=== PATIENT | female | born 1980 | race Caucasian/White ===

== ENCOUNTER 2021-11-10 21:46 | Inpatient (IN) ==
[2021-11-10 22:50] LABS: ABS Eosinophils 0.2 10^3/ul (0-0.6); ABS Monocytes 0.7 10^3/ul (0-0.8); ABS Neutrophils 3.6 10^3/ul (1.5-7.7); Eosinophil % 2.6 %; Hematocrit 43 % (35-47); Hemoglobin 14.3 g/dL (12.0-16.0); Lymphocyte % 39.9 %; Mean Corpuscular HGB Conc 33 g/dL (31-36); Mean Corpuscular Hemoglobin 29 pg (27-31); Mean Corpuscular Volume 88 fL (80-97); Mean Platelet Volume 9.9 fL (7.4-10.4); Nucleated Red Blood Cells % 0.1; Platelet Count 181 10^3/uL (150-450); Red Blood Count 4.89 10^6 /uL (3.70-4.87); Red Cell Distribution Width 13 % (10-15); White Blood Count 7.6 10^3/uL (3.5-10.8)
[2021-11-10 22:53] LABS: Urine Benzodiazepine Screen None Detected (None Detect); Urine Cannabinoids Screen None Detected (None Detect); Urine Opiates Screen None Detected (None Detect)
[2021-11-10 23:07] LABS: Urine Appearance Cloudy; Urine Bilirubin Negative (Negative); Urine Blood Negative (Negative); Urine Color Yellow; Urine Glucose Negative (Negative); Urine Ketones Trace (Negative); Urine Nitrite Negative (Negative); Urine Protein Negative (Negative); Urine Specific Gravity 1.025 (1.002-1.030); Urine Urobilinogen Negative (Negative)
[2021-11-10 23:14] LABS: ALT 18 U/L (7-52); AST 18 U/L (13-39); Acetaminophen < 15 mcg/mL; Albumin/Globulin Ratio 1.7 (1-3); Alcohol, S 108 mg/dL (<13); Alkaline Phosphatase 67 U/L (35-149); Anion Gap 9 mmol/L (2-11); Blood Urea Nitrogen 10 mg/dL (6-24); CO2 Carbon Dioxide 28 mmol/L (22-32); Calcium 9.2 mg/dL (8.6-10.3); Chloride 103 mmol/L (101-111); Globulin 2.3 g/dL (2-4); Glucose 110 mg/dL (70-100); Salicylate < 2.50 mg/dL (<30); Sodium 140 mmol/L (135-145); Total Protein 6.3 g/dL (6.4-8.9); eGFR CKD-EPI 111.4 (>60)
[2021-11-10 23:17] LABS: Urine Bacteria Absent (Absent); Urine Red Blood Cell Absent (Absent); Urine Squamous Epithelial Cell Present (Absent); Urine White Blood Cell Trace(0-5/hpf) (Absent)
[2021-11-10 23:21] LABS: HCG Pregnancy < 0.60 mIU/mL
[2021-11-10 23:29] LABS: TSH Ultra Thyroid Stim Horm 0.65 mcIU/mL (0.34-5.60)
[2021-11-11] MEDS ORDERED: Potassium Chlor 20 meq TAB.ER PO ONE (02:04)
[2021-11-11] MEDS ORDERED: Al Hydrox/Mg Hydrox/Simet LIQ 30 ML UDC PO PRN (06:23)
[2021-11-11] MEDS ORDERED: LORazepam PO 0-6 for WAM protocol PO SCH (07:00)
[2021-11-11] MEDS: Vitamin THERAPEUTIC TAB PO SCH (09:40)
[2021-11-12 07:51] LABS: HDL Cholesterol 59.6 mg/dL
[2021-11-12] MEDS: Vitamin THERAPEUTIC TAB PO SCH (10:59)
[2021-11-13] MEDS: Vitamin THERAPEUTIC TAB PO SCH (07:35)
[2021-11-14] MEDS: Vitamin THERAPEUTIC TAB PO SCH (09:08)
[2021-11-14] MEDS: Nicotine GUM 4MG FRUIT FLAVOR PO PRN ×2 (16:09→21:44)
[2021-11-15] MEDS: Vitamin THERAPEUTIC TAB PO SCH (08:06)
[2021-11-15] MEDS: Nicotine GUM 4MG FRUIT FLAVOR PO PRN (20:30)
[2021-11-16] MEDS: Vitamin THERAPEUTIC TAB PO SCH (08:57)
[2021-11-16] MEDS: Nicotine GUM 4MG FRUIT FLAVOR PO PRN (08:57)
[2021-11-17] MEDS: Vitamin THERAPEUTIC TAB PO SCH (07:35)
[2021-11-17] MEDS: Nicotine GUM 4MG FRUIT FLAVOR PO PRN ×2 (12:45→17:44)
[2021-11-18] MEDS: Vitamin THERAPEUTIC TAB PO SCH (07:25)
[2021-11-18 07:43] VITALS: BP 98/68
== END 2021-11-18 12:41 | disposition home or self-care (01) | DRG 774 ==
LOC: ED 21:46 → BSU 11-11 06:15
PROVIDERS: ADMIT Psychiatry & Neurology Psychiatry; ATTEND Student in an Organized Health Care Education/Training Program